=== PATIENT | male | born 1960 | race Caucasian/White ===

== ENCOUNTER 2016-09-09 07:59 | Outpatient (CLI) | payer OTHER ==
[2016-09-09 21:41] LABS: TOTAL PROTEIN 7.3 g/dL (6.0-8.5)
== END 2016-09-09 08:00 ==
LOC: LAB 07:59
PROVIDERS: ATTEND Family Medicine
DX: R03.0 Elevated blood-pressure reading, without diagnosis of hypertension (principal)
CPT/HCPCS: 36415; 80053; 80061

== ENCOUNTER 2017-09-29 10:28 | Outpatient (CLI) | payer OTHER ==
[2017-09-29 11:40] LABS: eGFR (African) > 60; eGFR (Non-African) > 60
== END 2017-09-29 10:30 ==
LOC: LAB 10:28
PROVIDERS: ATTEND Family Medicine
DX: F41.9 Anxiety disorder, unspecified (principal); E78.5 Hyperlipidemia, unspecified; R73.9 Hyperglycemia, unspecified; Z12.5 Encounter for screening for malignant neoplasm of prostate
CPT/HCPCS: 80053; 80061; 83036; 84153